=== PATIENT | male | born 1965 | race Caucasian/White ===

== ENCOUNTER 2021-07-04 14:46 | Outpatient (CLI) | payer MEDICAID, SELFPAY ==
[2021-07-04 15:18] LABS: Absolute Lymphocyte Count 2.18 X10^3/uL (0.83-4.51); Absolute Neutrophil Count 3.9 X10^3/uL (2.0-7.7); Basophil# 0.03 X10^3/uL; Basophil% 0.4 % (0-1); Eosinophil# 0.23 X10^3/uL; Eosinophils% 3.2 % (0-5); Hematocrit 45.4 % (40-54); Hemoglobin 15.2 g/dL (13.0-16.5); Lymphocyte # 2.18 X10^3/ul (0.83-4.51); Lymphocyte % 30.8 % (19-41); Mean Corp Hgb Conc 33.5 g/dL (32-36); Mean Corpuscular Hgb 31.2 pg (27.0-32.0); Mean Corpuscular Volume 93.2 fL (80-94); Mean Platelet Vol. 9.5 fl (6.2-12.0); Monocyte# 0.69 X10^3/uL; Monocyte% 9.7 % (0-10); NRBC Flagged by Analyzer 0 % (0-5); Neutrophil # 3.94 X10^3/uL (2.7-7.7); Neutrophil % 55.8 % (47-70); Platelet Count 313 K/mm3 (150-450); RBC Distribution Width CV 12.4 % (11.6-14.6); RBC Distribution Width SD 42.7 fl (35.1-43.9); Red Blood Count 4.87 M/mm3 (4.6-6.2); White Blood Count 7.1 K/mm3 (4.4-11.0)
[2021-07-04 16:05] LABS: Vitamin D,25 Hydroxy 21.6 ng/mL
[2021-07-04 16:14] LABS: AST(SGOT) 74 U/L (15-37); Alanine Aminotransfer ALT/SGPT 239 U/L (16-61); Albumin, Serum 3.8 g/dL (3.2-5.0); Alkaline Phosphatase 54 U/L (45-117); Anion Gap 3 (5-15); BUN 16 mg/dL (7-18); BUN/Creat Ratio 17.1 RATIO (10-20); Calcium,Total 9.3 mg/dL (8.5-10.1); Chloride 103 mmol/L (98-107); Cholesterol 146 mg/dL (200); Creatinine, Serum 0.93 mg/dL (0.70-1.30); EST Glomerular Filtration Rate 89 mL/min (>60); Est Glom Filt Rate - Afr Amer 108 mL/min (>60); Glucose 91 mg/dL (74-106); High Density Lipoprotein 33 mg/dL; Potassium 4.4 mmol/L (3.5-5.1); Protein, Total 7.8 g/dL (6.4-8.2); Sodium Level 137 mmol/L (136-145); Thyroid Stim Hormone (TSH) 1.07 uIU/mL (0.358-3.74); Triglycerides 217 mg/dL; Very Low Density Lipoprotein 43 mg/dL (5-40)
[2021-07-07 21:07] LABS: HCV Quant. RNA PCR 1270000 IU/mL (.)
[2021-07-07 22:14] LABS: HCV log 10 6.104 (.)
== END 2021-07-04 23:59 | disposition home or self-care (01) ==
PROVIDERS: PCP Internal Medicine; Referring Provider Internal Medicine; Visit Provider Internal Medicine
DX: K76.9 Liver disease, unspecified (principal); F10.10 Alcohol abuse, uncomplicated; B19.20 Unspecified viral hepatitis C without hepatic coma; Z87.898 Personal history of other specified conditions
CPT/HCPCS: 36415; 80053; 80061; 82306; 84443; 85025; 87522; 87902

== ENCOUNTER → 2021-08-21 | Outpatient (CLI) | payer MEDICAID, SELFPAY ==
[2021-08-21 14:32] LABS: AST(SGOT) 53 U/L (15-37); Alanine Aminotransfer ALT/SGPT 141 U/L (16-61); Albumin, Serum 3.4 g/dL (3.2-5.0); Alkaline Phosphatase 44 U/L (45-117); Bilirubin, Direct 0.13 mg/dL (0.00-0.30); Globulin 3.9 g/dL (2.2-4.2); Protein, Total 7.3 g/dL (6.4-8.2)
[2021-08-21 14:38] LABS: Hemoglobin A1c 5.5 % (3.8-5.6)
[2021-08-21 14:44] LABS: Prothrombin Time (Protime)PT. 12.6 SECONDS (11.7-14.9)
[2021-08-21 14:59] LABS: HIV - WCH Non-Reactive (Nonreactive)
[2021-08-23 05:07] LABS: HEPATITIS B SURFACE AG Negative (Negative); Hepatitis A IgM Antibody Negative (Negative); Hepatitis B Core AB IgM Negative (Negative)
[2021-08-23 10:45] LABS: AFP, Tumor Marker 4.3 ng/mL (0.0-8.4)
[2021-08-23 10:56] LABS: Hep C Antibodies >11.0 s/co ratio (0.0-0.9)
== END | disposition home or self-care (01) ==
PROVIDERS: PCP Internal Medicine; Visit Provider Nurse Practitioner Adult Health
DX: B19.20 Unspecified viral hepatitis C without hepatic coma (principal)
CPT/HCPCS: 36415; 80074; 80076; 82105; 83036; 85610; 86703

== ENCOUNTER → 2021-08-31 | Outpatient (CLI) | payer MEDICAID, SELFPAY ==
[2021-08-31] VITALS (9 sets, daily range): BP systolic 101–112; BP diastolic 61–84; PULSE 57–76; RESP 13–23; TEMP 36.9; O2SAT 92–96; BMI 30.4
--- NOTE | 2021-08-31 | LIVB_PTH ---
PATIENT: ELZA HARRY LOC: CT U#:[id number] AGE/SX: 55/M ROOM: RE08/31/[address]: EVE Mcfarland : 1965 BED: DIS: 08/31/2021 SPEC #: [id number] RECD: 08/31/21 10:02 STATUS: LENNY REBECA #: [id number] JEREL: 08/31/21 00:[address]: Stephenie Casiano NP DEPT: SURGICAL PATHOLOGY RECD BY: Valorie Serna ENTERED: 08/31/21 10:13 SP TYPE: LIVER BX CATALINA DR: Dr. Irlanda Gtz MD Tissues: Liver, NOS Procedures: PAS with Diastase (control) Trichrome (control) Special Stain Group II PAS Stain (control) Surgery Specimen Level V Retic (control) Iron Stain (control) HEADER OPERATION: CT Guided Liver Biopsy PRE-OP DIAGNOSIS: Hepatitis C, Elevated Liver Enzymes TISSUE SUBMITTED: Liver Core Biopsy 18-gauge core x3 MICROSCOPIC DIAGNOSIS Liver, CT-guided core biopsy: Chronic hepatitis, grade 2, stage 1 (modified Knodell scoring system for chronic hepatitis). See comment. AM:gabe 09/01/2021 COMMENT Sections show mild limiting fat necrosis and focal lobular necrosis. Trichrome stain reveals expansion of portal areas without bridging. Iron stain does not reveal accumulation of intraparenchymal iron. PAS and PASD stains do not reveal accumulation of abnormal proteins. Reticulin stain reveals a normal hepatic parenchymal architecture. All matched controls are appropriate. MICROSCOPIC DESCRIPTION Slides are reviewed. GROSS DESCRIPTION Received is one container labeled with the patient's name and not further designated. The specimen consists of four elongated fragments of delatorre soft tissue measuring 1.2 to 2 cm in length and 0.1 cm in diameter. The specimen is totally submitted in one cassette. / SJ:gabe 08/31/2021 TC:3 CPT: 20859, 15405 x5
[2021-08-31 08:01] LABS: Platelet Count 261 K/mm3 (150-450)
--- NOTE | 2021-08-31 08:01 | CT_ITS ---
PROCEDURE: CT DIRECTED CORE LIVER BIOPSY INDICATION: Male, 55 years old. Hepatitis C, needs bx pre-treatment PHYSICIAN: Dr. LAKISHA Ybarra CONSENT: Written informed consent was obtained having explained the risks, benefits and alternatives in detail with the patient who accepted the risks and agreed to proceed. Laboratory review and clinical assessment was performed. CONSCIOUS SEDATION PROTOCOL: The Drugs used were: 2 mg Versed, IV., and 50 mcg Fentanyl, IV. The sedation time was: 17 minutes. Conscious sedation was started at 9:34 AM and terminating at 9:51 AM. The conscious sedation protocol was independently monitored. RADIATION DOSAGE (If Supplied By Facility): CTDIvol = ( 19 ) mGy, DLP = ( 451.05 ) mGycm Individualized dose optimization techniques were used for this CT. TECHNIQUE: Using CT image guidance with image documentation, a suitable location in the left lobe of the liver was identified. Using an anterior approach, puncture of the liver was uneventful with an 18-gauge core needle system. 3, 18-gauge core samples were obtained, and submitted in formalin to the pathologist for further assessment. Followup CT scan revealed no distinct sequelae. CT/Biopsy/Inj or Needle Placement IMPRESSION: 1. CT directed core needle biopsy of the liver, using CT image guidance with image documentation as described. 2. Conscious Sedation protocol utilized with independent monitoring. Electronically Signed: Jem Birmingham MD at 10:19 EDT ,
--- NOTE | 2021-08-31 08:01 | CT_ITS ---
STUDY: CT ABDOMEN AND PELVIS WITH CONTRAST REASON FOR EXAM: Male, 55 years old. Hepatitis C RADIATION DOSAGE (If Supplied By Facility): CTDIvol = ( 12.83 ) mGy, DLP = ( 789.61 ) mGycm TECHNIQUE: Transaxial images were obtained from the dome of the diaphragm to the symphysis pubis without oral contrast. IV 100mL Isovue-300 was administered. Sagittal and coronal images were reconstructed. Individualized dose optimization techniques were used for this CT. COMPARISON: None. FINDINGS: The visualized lung bases are unremarkable. The visualized portions of the heart are within normal limits. There is decreased attenuation of the liver consistent with steatosis. Small lymph nodes are seen in the gastroepiploic ligament. There are multiple gallstones. Normal spleen. Normal pancreas. Normal bilateral adrenal glands. Normal right kidney. Normal left kidney. There is a small hiatal hernia. Normal small intestine. Normal colon. The appendix is visualized and appears normal. There is scattered atherosclerotic calcification of the abdominal aorta, without a demonstrated aneurysm. Normal inferior vena cava. Normal retroperitoneum. Normal urinary bladder. Normal abdominal wall. Marked degree of disc space narrowing and disc degeneration at the L5-S1 level. Central disc bulge Anterior spondylosis throughout the lumbar spine. CT/Abdomen/Pelvis WITH Contrast IMPRESSION: Fatty infiltration of the liver. Multiple small gallstones. Small lymph nodes are seen in the gastroepiploic ligament. Small hiatal hernia. Electronically Signed: Jem Birmingham MD at 10:13 EDT ,
[2021-08-31 08:14] LABS: Prothrombin Time (Protime)PT. 12.8 SECONDS (11.7-14.9)
[2021-08-31 08:16] LABS: Partial Thromboplast Time 28.9 Seconds (24.1-36.2)
[2021-08-31] MEDS: 0.9% Normal Saline 1,000 ML 15 ML IV (09:30)
[2021-08-31] MEDS: fentaNYL 100 MCG/2 ML Ampul IV (09:34)
[2021-08-31] MEDS: Midazolam 2 MG/2 ML Syringe IV (09:34)
[2021-08-31] MEDS: Lidocaine 2% (20 ml mdv) 20 ML Vial INFILT (09:48)
== END | disposition home or self-care (01) ==
PROVIDERS: PCP Internal Medicine; Referring Provider Nurse Practitioner Adult Health; Visit Provider Nurse Practitioner Adult Health
DX: B18.2 Chronic viral hepatitis C (principal); R74.8 Abnormal levels of other serum enzymes
CPT/HCPCS: 47000; 36415; 74177; 77012; 85049; 85610; 85730; 88307; 88313; 99156; J7030; Q9967; A4216

== ENCOUNTER → 2021-09-05 | Outpatient (CLI) | payer MEDICAID, SELFPAY ==
--- NOTE | 2021-09-05 07:58 | US_ITS ---
STUDY: ABDOMINAL ULTRASOUND - RIGHT UPPER QUADRANT REASON FOR VISIT: Male, 55 years old UNSPECIFIED VIRAL HEP C W/O HEPATIC COMA TECHNIQUE: Ultrasound evaluation of the right upper quadrant was performed with real-time and static santana-scale imaging. TECHNICAL QUALITY: Adequate. COMPARISON: None. FINDINGS: Liver: The liver measures 16.7 cm. There is increased echogenicity consistent with fatty infiltration. The bile ducts are within normal limits. There is hepatic color flow. The direction of portal flow is hepatopetal. There is no demonstrated mass lesion. Gallbladder: Normal distended gallbladder. The gallbladder wall measures 1.5 mm. There is a negative sonographic Eid''s sign. There is no pericholecystic fluid. There are multiple echogenic structures within the gallbladder, consistent with multiple gallstones. Common Bile Duct (C.B.D.): The common bile duct measures 2.9 mm. Pancreas: Normal size of the head, body and tail of the pancreas. There is normal echogenicity of the pancreas. There is no demonstrated pancreatic mass or cyst. Right Kidney: Normal size of the right kidney. The right kidney measures 12.2 cm x 6.2 cm x 4.2 cm. Normal renal cortex. The right cortex measures 1.3 cm. There is no demonstrated renal mass or cyst. There is no right hydronephrosis. US/Abdomen Limited IMPRESSION: Fatty infiltration of the liver. Multiple small gallstones. Electronically Signed: Jem Birmingham MD at 10:03 EDT ,
--- NOTE | 2021-09-05 07:59 | US_ITS ---
STUDY: ABDOMINAL ULTRASOUND - ELASTOGRAPHY REASON FOR VISIT: Male, 55 years old. Hepatitis C. TECHNIQUE: Liver stiffness measurements were obtained on a Copytele RS 85 ultrasound machine using a CA 1-7 probe following the SRU guidelines. 3 measurements were obtained using a 2-D-SWE method. The IQR/M was 16% suggesting a quality data set. TECHNICAL QUALITY: Adequate. COMPARISON: Comparison is made with prior study done earlier today. FINDINGS: Liver: Fatty infiltration of the liver. Median liver stiffness measured 7.1 kPa. US/Elastography Parenchyma/Organ IMPRESSION: Liver stiffness measures 7.1 kPa compatible with F2-F3 (Mild to moderate liver fibrosis) Metavir score. Electronically Signed: Jem Birmingham MD at 10:05 EDT ,
== END | disposition home or self-care (01) ==
PROVIDERS: PCP Internal Medicine; Referring Provider Nurse Practitioner Adult Health; Visit Provider Nurse Practitioner Adult Health
DX: R74.8 Abnormal levels of other serum enzymes (principal); B19.20 Unspecified viral hepatitis C without hepatic coma
CPT/HCPCS: J2405; 76705; 76981

== ENCOUNTER 2021-11-17 22:44 | Inpatient (IN) | payer MEDICAID, SELFPAY ==
[2021-11-17 22:45] VITALS: BP 102/72; PULSE 91; RESP 16; TEMP 36.6; O2SAT 95; BMI 24.3
[2021-11-17 23:59] VITALS: RESP 18; O2SAT 97
[2021-11-18] VITALS (7 sets, daily range): BP systolic 108–120; BP diastolic 63–79; PULSE 66–88; RESP 14–18; TEMP 36.4–37.2; O2SAT 93–98; BMI 29.0
[2021-11-18 00:05] LABS: Absolute Lymphocyte Count 3.02 X10^3/uL (0.83-4.51); Absolute Neutrophil Count 2.6 X10^3/uL (2.0-7.7); Basophil# 0.06 X10^3/uL; Basophil% 0.9 % (0-1); Eosinophil# 0.26 X10^3/uL; Eosinophils% 3.9 % (0-5); Hematocrit 45.3 % (40-54); Hemoglobin 15.4 g/dL (13.0-16.5); Lymphocyte # 3.02 X10^3/ul (0.83-4.51); Lymphocyte % 44.9 % (19-41); Mean Corpuscular Hgb 31.6 pg (27.0-32.0); Mean Corpuscular Volume 92.8 fL (80-94); Mean Platelet Vol. 9.2 fl (6.2-12.0); Monocyte# 0.76 X10^3/uL; Monocyte% 11.3 % (0-10); NRBC Flagged by Analyzer 0 % (0-5); Neutrophil % 38.7 % (47-70); Platelet Count 389 K/mm3 (150-450); RBC Distribution Width CV 13.7 % (11.6-14.6); RBC Distribution Width SD 46.9 fl (35.1-43.9); Red Blood Count 4.88 M/mm3 (4.6-6.2); White Blood Count 6.7 K/mm3 (4.4-11.0)
--- NOTE | 2021-11-18 00:05 | NURSING ---
assisted pt to restroom pt unable to void.
[2021-11-18 00:33] LABS: ALB/GLOB Ratio 0.9 RATIO (0.9-2.4); AST(SGOT) 80 U/L (15-37); Alanine Aminotransfer ALT/SGPT 100 U/L (16-61); Albumin, Serum 3.6 g/dL (3.2-5.0); Alkaline Phosphatase 43 U/L (45-117); Anion Gap 6 (5-15); BUN 6 mg/dL (7-18); BUN/Creat Ratio 7.5 RATIO (10-20); Calcium,Total 8.8 mg/dL (8.5-10.1); Chloride 111 mmol/L (98-107); EST Glomerular Filtration Rate 106 mL/min (>60); Est Glom Filt Rate - Afr Amer 129 mL/min (>60); Estimated Creatinine Clearance 99.75 ml/min; Globulin 3.9 g/dL (2.2-4.2); Glucose 98 mg/dL (74-106); Protein, Total 7.5 g/dL (6.4-8.2); Sodium Level 140 mmol/L (136-145)
--- NOTE | 2021-11-18 00:50 | PCM.HP.STD ---
HPI - General General Date of Service: 11/18/21 Chief Complaint: Desire for alcohol detoxification HPI Narrative ELZA HARRY, is a 56 M with a significant history of hepatitis C infection; and alcoholism who presents with help with alcoholism. Reportedly patient drinks about 10 beers per day. Last time he drank was about 2 hours before presentation. He denies any withdrawal symptoms at this time. [facility] Medical History Alcohol abuse Back problem Cataract Elevated liver enzymes Hearing problem Heartburn Hepatitis C History of drug use Liver disease Home Medications ibuprofen 600 mg tablet 600 mg PO TID PRN pain #60 tabs 07/12/21 [Rx Last Taken Unknown] emollient See Rx Instructions topical .prn dry skin #500 grams 08/21/21 [Rx Last Taken Unknown] melatonin 3 mg tablet 3 mg PO HS PRN sleep #30 tabs 08/21/21 [Rx Last Taken Unknown] bupropion HCl 150 mg tablet,12 hr sustained-release (Wellbutrin SR) 150 mg PO DAILY 08/31/21 [History Last Taken Unknown] sofosbuvir 400 mg-velpatasvir 100 mg tablet (Epclusa) 1 tab PO DAILY 12 weeks #84 tabs 10/27/21 [Rx Last Taken Unknown] Allergy/AdvReac Type Severity Reaction Status Date / Time No Known Allergies Allergy Verified 11/17/21 22:49 Family History Father Alcoholism Liver disease Mother Anxiety Lung cancer Other Depression Surgical History H/O eye surgery H/O removal of testicle Social History Smoking Status: Current every day smoker tobacco type: cigarettes alcohol intake: former substance use type: former substance user what type of physical activity do you participate in: running frequency: 3-4 times per week ROS ROS Narrative Pertinent positives and pertinent negatives as noted in HPI. All other systems were reviewed and are negative. Vital Signs Vital Signs Vital Signs: 11/17/21 22:45 11/17/21 23:59 Temperature 97.9 F Temperature Source Temporal Pulse Rate 91 Respiratory Rate 16 18 Blood Pressure 102/72 Blood Pressure Mean 82 Pulse Ox 95 97 Oxygen Delivery Method Room Air Room Air Weight Weight: 72.575 kg Body Mass Index (BMI) 24.3 Physical Exam Narrative Physical exam: General: Well-nourished, well-developed. Head: Normocephalic, atraumatic, no tenderness Eyes: Vision is grossly intact. EOMI ENT, no trauma, moist mucous membranes, no rhinorrhea Neck: Nontender, full range of motion, no spinal tenderness, deformities, step-off CVS: Regular rate and rhythm. S1-S2 present. No murmur, gallop or rub. Respiratory : clear to auscultation bilaterally, chest wall nontender, no wheezing Abdomen: Soft, nontender, nondistended, normal bowel sounds, no masses : Deferred Back: Nontender, no CVA tenderness, no midline spinal tenderness, deformities, step-offs Extremities: Nontender full range of motion, no trauma Skin: Normal color, no trauma, abrasions Neuro: Lethargic, oriented, cranial nerves II through XII grossly intact. Psychiatry: Normal mood. Normal affect. Not depressed. Not anxious. Results Medical Records Data Attestation: I reviewed the patient's medical records Lab / Micro Data Attestation: I reviewed the patient's lab results. Result Diagrams: 11/17/21 23:56 11/17/21 23:56 Labs: Laboratory Results - last 24 hr 11/17/21 23:56: WBC 6.7, RBC 4.88, Hgb 15.4, Hct 45.3, MCV 92.8, MCH 31.6, MCHC 34.0, RDW Std Deviation 46.9 H, RDW Coeff of John 13.7, Plt Count 389, MPV 9.2, Immature Gran % (Auto) 0.300, Neut % (Auto) 38.7 L, Lymph % (Auto) 44.9 H, [place] % (Auto) 11.3 H, Eos % (Auto) 3.9, Baso % (Auto) 0.9, Absolute Neuts (auto) 2.6, Absolute Lymphs (auto) 3.02, Nucleated RBC % 0 11/17/21 23:56: Sodium 140, Potassium 4.0, Chloride 111 H, Carbon Dioxide 23.0, Anion Gap 6, BUN 6 L, Creatinine 0.80, Estim Creat Clear Calc 99.75, Est GFR (MDRD) Af Amer 129, Est GFR (MDRD) Non-Af 106, BUN/Creatinine Ratio 7.5 L, Glucose 98, Calcium 8.8, Total Bilirubin 0.20, AST 80 H, ALT 100 H, Alkaline Phosphatase 43 L, Total Protein 7.5, Albumin 3.6, Globulin 3.9, Albumin/Globulin Ratio 0.9 11/17/21 23:56: Ethyl Alcohol 289.0 Micro: Microbiology 11/18/21 00:05 Nasal Secretion SARS-CoV-2 Antigen (Rapid) - Final Assessment & Plan Assessment/Plan (1) Alcohol dependence: (2) Desire for detoxification: PLAN: Plan Alcohol dependence and desire for detoxification Lab work reviewed showed ethanol level of 289 Patient be started on phenobarbital and other adjunctive medications: Gabapentin as needed; dicyclomine as needed; Vistaril as needed; Imodium as needed; trazodone as needed; Zofran as needed; scheduled thiamine; and schedule folic acid. Monitor CIWA score Tobacco abuse Counseled Nicotine patch prescribed. Elevated liver enzymes Likely secondary to alcoholism and hepatitis C. Clinical monitoring. DVT prophylaxis Low risk Encourage to ambulate Charges/Coding Visit Charges Inpatient E&M: 35638 Init Hosp L2
--- NOTE | 2021-11-18 00:52 | EX.ED.SAOD ---
HPI History of Present Illness Chief Complaint: Substance Abuse Narrative Narrative: Patient presents seeking detox from alcohol. He has been drinking for several decades, he states his usual daily average intake is several sixpacks of beer. He occasionally uses methamphetamine, but nothing regularly, and denies any other drug use. He does not drink hard liquor, just beer. He gets the shakes every morning if he has not drank. Currently, he is feeling intoxicated since he recently drank. He denies recent illness or injury. Last time he went through detox was a program 4 or 5 months ago. [facility] Medical History Alcohol abuse Back problem Cataract Elevated liver enzymes Hearing problem Heartburn Hepatitis C History of drug use Liver disease Home Medications ibuprofen 600 mg tablet 600 mg PO TID PRN pain #60 tabs 07/12/21 [Rx Last Taken Unknown] emollient See Rx Instructions topical .prn dry skin #500 grams 08/21/21 [Rx Last Taken Unknown] melatonin 3 mg tablet 3 mg PO HS PRN sleep #30 tabs 08/21/21 [Rx Last Taken Unknown] bupropion HCl 150 mg tablet,12 hr sustained-release (Wellbutrin SR) 150 mg PO DAILY 08/31/21 [History Last Taken Unknown] sofosbuvir 400 mg-velpatasvir 100 mg tablet (Epclusa) 1 tab PO DAILY 12 weeks #84 tabs 10/27/21 [Rx Last Taken Unknown] Allergy/AdvReac Type Severity Reaction Status Date / Time No Known Allergies Allergy Verified 11/17/21 22:49 Family History Father Alcoholism Liver disease Mother Anxiety Lung cancer Other Depression Surgical History H/O eye surgery H/O removal of testicle Social History Smoking Status: Current every day smoker tobacco type: cigarettes alcohol intake: former substance use type: former substance user what type of physical activity do you participate in: running frequency: 3-4 times per week ROS ROS ED Constitutional Constitutional ED: Denies chills or fever(s) Eyes Eyes: Denies change in vision or diplopia ENT ENT ED: Denies rhinorrhea or sore throat Cardiovascular Cardiovascular: Denies chest pain or palpitations Respiratory/Chest Respiratory/Chest: Denies cough or dyspnea Gastrointestinal Gastrointestinal: Denies abdominal pain, diarrhea, nausea or vomiting Genitourinary Genitourinary ED: Denies dysuria or hematuria Musculoskeletal Musculoskeletal: Denies back pain or neck pain Integumentary Denies abscess or rash Neurologic Neurologic: Denies headache(s), paresthesias or weakness Psychiatric Psychiatric: Denies anxiety or suicidal thoughts EXAM Physical Exam Const Vital Signs: 11/17/21 22:45 11/17/21 23:59 Temperature 97.9 F Temperature Source Temporal Pulse Rate 91 Respiratory Rate 16 18 Blood Pressure 102/72 Blood Pressure Mean 82 Pulse Ox 95 97 Oxygen Delivery Method Room Air Room Air Positive well nourished and well developed Constitutional Narrative: Intoxicated, pleasant and cooperative General Appearance ED: well developed and NAD HEENT Reports moist mucous membranes normocephalic and atraumatic Eyes PERRL and EOMs intact bilaterally Neck full ROM and supple Resp normal respiratory effort and clear to auscultation bilaterally Cardio regular rate, regular rhythm and no murmurs GI non-tender and non-distended Auscultation: normoactive bowel sounds Palpation: soft Back/Spine no CVA tenderness General Back: other FROM Extremity normal to inspection General Extremety ED: Negative for edema, pulses abnormal or tenderness General Extremity: Negative for edema or pulses abnormal Neuro oriented x3, CN's II-XII intact bilaterally and no sensory deficits noted Sensorium / Orientation: awake and alert Motor Exam: strength 5/5 throughout Skin no rashes or lesions noted and no wounds MDM MDM MDM Narrative Medical decision making narrative: Just slight elevations of his AST, ALT, alkaline phosphatase. His bilirubin is within normal limits. Alcohol level 289. Drug screen pending. Patient is clinically and hemodynamically stable, discussed with hospitalist for detox admission. Patient is calm and cooperative. Lab Data Attestation: I reviewed the patient's lab results. Labs: Laboratory Results - last 24 hr 11/17/21 11/17/21 11/17/21 23:56 23:56 23:56 WBC 6.7 RBC 4.88 Hgb 15.4 Hct 45.3 MCV 92.8 MCH 31.6 MCHC 34.0 RDW Std Deviation 46.9 H RDW Coeff of John 13.7 Plt Count 389 MPV 9.2 Immature Gran % (Auto) 0.300 Neut % (Auto) 38.7 L Lymph % (Auto) 44.9 H [place] % (Auto) 11.3 H Eos % (Auto) 3.9 Baso % (Auto) 0.9 Absolute Neuts (auto) 2.6 Absolute Lymphs (auto) 3.02 Nucleated RBC % 0 Sodium 140 Potassium 4.0 Chloride 111 H Carbon Dioxide 23.0 Anion Gap 6 BUN 6 L Creatinine 0.80 Estim Creat Clear Calc 99.75 Est GFR (MDRD) Af Amer 129 Est GFR (MDRD) Non-Af 106 BUN/Creatinine Ratio 7.5 L Glucose 98 Calcium 8.8 Total Bilirubin 0.20 AST 80 H ALT 100 H Alkaline Phosphatase 43 L Total Protein 7.5 Albumin 3.6 Globulin 3.9 Albumin/Globulin Ratio 0.9 Ethyl Alcohol 289.0 Discharge Plan Triage Chief Complaint: Substance Abuse ED Provider: Quinten Dhaliwal Dx/Rx/DC Orders Clinical Impression: Alcohol dependence, Methamphetamine use Prescriptions: No Action ibuprofen 600 mg tablet 600 mg PO TID PRN (Reason: pain) Qty: 60 0RF Rx Instructions: Do not take in conjunction with other NSAIDs. melatonin 3 mg tablet 3 mg PO HS PRN (Reason: sleep) Qty: 30 0RF emollient Cream See Rx Instructions topical .prn Qty: 500 0RF Rx Instructions: apply as needed for dry skin topical .prn; apply as needed for dry skin bupropion HCl [Wellbutrin SR] 150 mg Tablet Sustained-Release 12 Hr 150 mg PO DAILY sofosbuvir-velpatasvir [Epclusa] 400-100 mg tablet 1 tab PO DAILY 84 Days Qty: 84 0RF Primary Care Provider: Irlanda Gtz Referrals: Irlanda Gtz MD [Primary Care Provider] - Disposition Disposition: Acute Care Hospital [facility]
[2021-11-18 00:58] LABS: International Normalized Ratio 1.1; Prothrombin Time (Protime)PT. 13.4 SECONDS (11.7-14.9)
[2021-11-18 01:43] LABS: Amphetamine Urine VISTA NEGATIVE (<1000 ng/mL); Barbiturate Urine VISTA NEGATIVE (< 200 ng/mL); Benzodiazepine Urine VISTA NEGATIVE (< 200 ng/mL); Cocaine Urine VISTA NEGATIVE (< 300 ng/mL); Ecstacy Urine VISTA NEGATIVE (< 500 ng/mL); Methadone Urine VISTA NEGATIVE (< 300 ng/mL); PCP Urine VISTA NEGATIVE (< 25 ng/mL); THC Urine VISTA NEGATIVE (< 50 ng/mL); Vista UDS pH Range 6
[2021-11-18] MEDS: Phenobarbital 32.4 MG Tablet PO ×6 (01:56→22:33)
[2021-11-18] MEDS: Gabapentin 300 MG Capsule PO ×3 (01:56→17:51)
--- NOTE | 2021-11-18 10:06 | PN.HOSP_ITS ---
Subjective Subjective Follow-up on acute alcohol withdrawal: Patient was seen and examined. No new complaints. Denies fever or chills. Objective Data Objective Data Vital Signs: Vital Signs Temp Pulse Resp BP Pulse Ox O2 Del Method 97.9 F 88 18 115/65 93 Room Air 11/18/21 05:30 11/18/21 05:30 11/18/21 05:30 11/18/21 05:30 11/18/21 05:30 11/18/21 05:30 Oxygen Delivery Method Room Air Weight: 84.2 kg Body Mass Index (BMI) 29.0 Intake & Output: Intake and Output for Last 24 Hours 11/16/21 11/17/21 11/18/21 23:59 23:59 23:59 Intake Total 240 / 240 Balance 240 / 240 Lab / Micro Data Result Diagrams: 11/17/21 23:56 11/17/21 23:56 Labs: Laboratory Results - last 24 hr 11/17/21 23:56: WBC 6.7, RBC 4.88, Hgb 15.4, Hct 45.3, MCV 92.8, MCH 31.6, MCHC 34.0, RDW Std Deviation 46.9 H, RDW Coeff of John 13.7, Plt Count 389, MPV 9.2, Immature Gran % (Auto) 0.300, Neut % (Auto) 38.7 L, Lymph % (Auto) 44.9 H, [place] % (Auto) 11.3 H, Eos % (Auto) 3.9, Baso % (Auto) 0.9, Absolute Neuts (auto) 2.6, Absolute Lymphs (auto) 3.02, Nucleated RBC % 0 11/17/21 23:56: Sodium 140, Potassium 4.0, Chloride 111 H, Carbon Dioxide 23.0, Anion Gap 6, BUN 6 L, Creatinine 0.80, Estim Creat Clear Calc 99.75, Est GFR (MDRD) Af Amer 129, Est GFR (MDRD) Non-Af 106, BUN/Creatinine Ratio 7.5 L, Glucose 98, Calcium 8.8, Total Bilirubin 0.20, AST 80 H, ALT 100 H, Alkaline Phosphatase 43 L, Total Protein 7.5, Albumin 3.6, Globulin 3.9, Albumin/Globulin Ratio 0.9 11/17/21 23:56: Ethyl Alcohol 289.0 11/18/21 00:15: PT 13.4, INR 1.1 11/18/21 01:18: Urine Opiates Screen NEGATIVE, Urine Methadone Screen NEGATIVE, Ur Barbiturates Screen NEGATIVE, Ur Phencyclidine Scrn NEGATIVE, Ur Amphetamines Screen NEGATIVE, MDMA (Ecstasy) Screen NEGATIVE, U Benzodiazepines Scrn NEGATIVE, Urine Cocaine Screen NEGATIVE, U Cannabinoids Screen NEGATIVE, Ur Drug Screen Comment Micro: Microbiology 11/18/21 00:05 Nasal Secretion SARS-CoV-2 Antigen (Rapid) - Final Physical Exam Narrative Physical exam: General: Alert, Oriented x3, Cooperative, No apparent distress HEENT: Atraumatic Oral: Moist Mucosa Neck: Supple Lungs: Clear to auscultation Cardiovascular: HS I+II, regular, no murmurs Abdomen: Bowel Sounds Present, Soft, Non Tender Extremities: No edema Skin: No rashes, No breakdown Neurological: Grossly intact Psych/Mental Status: Appropriate Assessment & Plan Assessment/Plan (1) Alcohol dependence: (2) Desire for detoxification: PLAN: Plan 1. Acute alcohol withdrawal, CIWA 4, continue on phenobarbital withdrawal protocol 2. Nicotine dependence, continue on replacement 3. Elevated LFTs secondary to chronic alcohol abuse/liver cirrhosis 4. Chronic hepatitis C, genotype 1a, follows up in the outpatient with GI 5. DVT prophylaxis - low risk; early ambulation Charges/Coding Visit Charges Inpatient E&M: 58185 Subs Hosp L2
[2021-11-18] MEDS: Thiamine Hydrochloride 100 MG Tablet PO (10:29)
[2021-11-18] MEDS: Folic Acid 1 MG Tablet PO (10:29)
[2021-11-18] MEDS: Loperamide 2 MG Capsule PO ×2 (14:23→17:51)
[2021-11-18] MEDS: hydrOXYzine PAM 25 MG Capsule 50 MG PO ×2 (14:23→22:48)
[2021-11-18] MEDS: traZODone 100 MG Tablet PO (22:48)
[2021-11-19 02:20] VITALS: BP 112/75; PULSE 59; RESP 14; TEMP 36.4
[2021-11-19] MEDS: Phenobarbital 32.4 MG Tablet PO ×6 (02:23→21:59)
[2021-11-19 06:45] VITALS: BP 125/85; PULSE 77; RESP 14; TEMP 36.6
--- NOTE | 2021-11-19 09:26 | PCM.PN.HOSP ---
Subjective Subjective Follow-up on acute alcohol withdrawal: Patient was seen and examined. No acute events overnight. No new complaints. Objective Data Objective Data Vital Signs: Vital Signs Temp Pulse Resp BP Pulse Ox O2 Del Method 97.8 F 77 14 125/85 H 93 Room Air 11/19/21 06:45 11/19/21 06:45 11/19/21 06:45 11/19/21 06:45 11/18/21 22:30 11/19/21 06:45 Oxygen Delivery Method Room Air Weight: 84.2 kg Body Mass Index (BMI) 29.0 Intake & Output: Intake and Output for Last 24 Hours 11/17/21 11/18/21 11/19/21 23:59 23:59 23:59 Intake Total 240 / 240 Balance 240 / 240 Lab / Micro Data Result Diagrams: 11/17/21 23:56 11/17/21 23:56 Micro: Microbiology 11/18/21 00:05 Nasal Secretion SARS-CoV-2 Antigen (Rapid) - Final Physical Exam Narrative Physical exam: General: Alert, Oriented x3, Cooperative, No apparent distress HEENT: Atraumatic Oral: Moist Mucosa Neck: Supple Lungs: Clear to auscultation Cardiovascular: HS I+II, regular, no murmurs Abdomen: Bowel Sounds Present, Soft, Non Tender Extremities: No edema Skin: No rashes, No breakdown Neurological: Grossly intact Psych/Mental Status: Appropriate Assessment & Plan Assessment/Plan (1) Alcohol dependence: (2) Desire for detoxification: PLAN: Plan Summary: 56-year-old male with past medical history of chronic alcohol abuse, chronic hep C, not on treatment, who comes in requesting for medical stabilization for acute alcohol withdrawal. 1. Acute alcohol withdrawal, CIWA 3, continue on phenobarbital withdrawal protocol 2. Nicotine dependence, continue on replacement 3. Elevated LFTs secondary to chronic alcohol abuse/liver cirrhosis, LFTs are stable Patient follows with GI in the outpatient 4. Chronic hepatitis C, genotype 1a, follows up in the outpatient with GI 5. DVT prophylaxis - low risk; early ambulation Charges/Coding Visit Charges Inpatient E&M: 19801 Subs Hosp L2
[2021-11-19] MEDS: Gabapentin 300 MG Capsule PO ×2 (10:13→22:21)
[2021-11-19] MEDS: Pantoprazole Sodium 40 MG Tablet PO (10:13)
[2021-11-19] MEDS: Folic Acid 1 MG Tablet PO (10:13)
[2021-11-19] MEDS: Thiamine Hydrochloride 100 MG Tablet PO (10:13)
[2021-11-19 10:21] VITALS: BP 129/85; PULSE 76; RESP 17; TEMP 36.8; O2SAT 95
[2021-11-19 14:56] VITALS: BP 122/95; PULSE 97; RESP 17; O2SAT 95
[2021-11-19] MEDS: hydrOXYzine PAM 25 MG Capsule 50 MG PO ×2 (14:56→20:05)
[2021-11-19] MEDS: Ondansetron 8 MG Tablet PO (17:05)
--- NOTE | 2021-11-19 17:12 | ADDICTION ---
Pt was met with to complete RAMP assessment, AUDIT, DUDIT, ASAM, Mt Status, D/C Plan, ZACHARIAH's, and to discuss pt's needs. Pt reports that he is interested in residential at [facility]. Pt states his friends Aroldo and Alexander will help arrange transport to [facility], where Aroldo works. Pt was also open to completing a residential screening with Tg from [facility]. Pt is homeless and does not have a safe place to d/c and he states he is motivated to reenter treatment.
[2021-11-19] MEDS: Calcium Carbonate 500 MG Tablet 1000 MG PO (18:40)
[2021-11-19] MEDS: Dicyclomine 10 MG Capsule 20 MG PO (20:04)
[2021-11-19 22:00] VITALS: BP 108/79; PULSE 76; RESP 16; TEMP 37.4; O2SAT 95
[2021-11-19] MEDS: 0.9% Saline Lock 10 ML Syringe IV (22:10)
[2021-11-19] MEDS: traZODone 100 MG Tablet PO (22:21)
[2021-11-20] VITALS (7 sets, daily range): BP systolic 105–123; BP diastolic 68–82; PULSE 61–79; RESP 14–18; TEMP 36.3–36.9; O2SAT 93–97
[2021-11-20] MEDS: Phenobarbital 32.4 MG Tablet PO ×5 (02:34→21:59)
[2021-11-20 07:07] LABS: ALB/GLOB Ratio 0.8 RATIO (0.9-2.4); AST(SGOT) 45 U/L (15-37); Alanine Aminotransfer ALT/SGPT 64 U/L (16-61); Albumin, Serum 2.6 g/dL (3.2-5.0); Alkaline Phosphatase 39 U/L (45-117); Anion Gap 3 (5-15); BUN 11 mg/dL (7-18); BUN/Creat Ratio 14.3 RATIO (10-20); Calcium,Total 8.9 mg/dL (8.5-10.1); Chloride 107 mmol/L (98-107); Creatinine, Serum 0.77 mg/dL (0.70-1.30); EST Glomerular Filtration Rate 111 mL/min (>60); Est Glom Filt Rate - Afr Amer 135 mL/min (>60); Estimated Creatinine Clearance 100.15 ml/min; Globulin 3.2 g/dL (2.2-4.2); Glucose 122 mg/dL (74-106); Potassium 3.9 mmol/L (3.5-5.1); Protein, Total 5.8 g/dL (6.4-8.2); Sodium Level 137 mmol/L (136-145)
[2021-11-20] MEDS: Folic Acid 1 MG Tablet PO ×2 (08:19)
[2021-11-20] MEDS: Thiamine Hydrochloride 100 MG Tablet PO (08:19)
[2021-11-20] MEDS: Pantoprazole Sodium 40 MG Tablet PO (09:45)
--- NOTE | 2021-11-20 14:56 | NURSING ---
at discharge will be going to [facility] person; main number; Aroldo Riggins transporting pt; Alma Alonso
--- NOTE | 2021-11-20 18:24 | PN.HOSP_ITS ---
Subjective Subjective Patient was seen and examined today, he has no complaints of any nervousness or anxiety at this time. Patient is agreed to go to an inpatient detox program tomorrow morning. Objective Data Objective Data Vital Signs: Vital Signs Temp Pulse Resp BP Pulse Ox O2 Del Method 97.6 F L 78 18 116/79 97 Room Air 11/20/21 15:42 11/20/21 15:42 11/20/21 15:47 11/20/21 15:42 11/20/21 15:42 11/20/21 15:47 Oxygen Delivery Method Room Air Weight: 84.2 kg Body Mass Index (BMI) 29.0 Intake & Output: Intake and Output for Last 24 Hours 11/18/21 11/19/21 11/20/21 23:59 23:59 23:59 Intake Total 240 / 240 Balance 240 / 240 Lab / Micro Data Result Diagrams: 11/17/21 23:56 11/20/21 05:22 Labs: Laboratory Results - last 24 hr 11/20/21 05:22: Sodium 137, Potassium 3.9, Chloride 107, Carbon Dioxide 27.0, Anion Gap 3 L, BUN 11, Creatinine 0.77, Estim Creat Clear Calc 100.15, Est GFR (MDRD) Af Amer 135, Est GFR (MDRD) Non-Af 111, BUN/Creatinine Ratio 14.3, Glucose 122 H, Calcium 8.9, Total Bilirubin 0.30, AST 45 H, ALT 64 H, Alkaline Phosphatase 39 L, Total Protein 5.8 L, Albumin 2.6 L, Globulin 3.2, Albumin/Globulin Ratio 0.8 L Micro: Microbiology 11/18/21 00:05 Nasal Secretion SARS-CoV-2 Antigen (Rapid) - Final Physical Exam Const alert, oriented x3, no apparent distress and healthy appearing General Appearance: cooperative, well kempt and well developed Orientation / Consciousness: awake, oriented to person, oriented to place and oriented to time HEENT normocephalic, head/scalp atraumatic and moist oral mucous membranes Eyes PERRL, EOMs intact bilaterally and conjunctivae normal Neck supple, no JVD and thyroid normal General: trachea midline Resp normal respiratory effort, no retractions, no use of accessory muscles and clear to auscultation bilaterally Auscultation: Negative for rales, rhonchi or wheezes Cardio regular rate, regular rhythm, S1 normal heart sound, S2 normal heart sound, no murmurs, no rub and no gallops GI normal to inspection, nondistended, normoactive bowel sounds, soft to palpation, non-tender and non-distended Extremity no clubbing, cyanosis or edema Skin no rashes or lesions noted General Skin Exam: no breakdown Neuro oriented x3, CN's II-XII intact bilaterally, no focal motor deficits and no sensory deficits noted Sensorium / Orientation: awake and alert Speech: speech normal Psych affect normal Assessment & Plan Assessment/Plan (1) Alcohol dependence: PLAN: Plan 1. Acute alcohol withdrawal-patient is minimally symptomatic at this time, co ntinue phenobarbital #2 chronic alcoholism-patient has agreed to go into an inpatient detox facility tomorrow #3 elevated liver enzymes-secondary to alcohol abuse-these seem to be trending downward at this time, I do not feel the patient needs these monitored at this time Charges/Coding Visit Charges Inpatient E&M: 05348 Subs Hosp L2
[2021-11-20] MEDS: traZODone 100 MG Tablet PO (21:59)
[2021-11-20] MEDS: Gabapentin 300 MG Capsule PO (21:59)
[2021-11-21 02:17] VITALS: BP 119/80; PULSE 90; RESP 16; TEMP 36.9; O2SAT 95
[2021-11-21] MEDS: Dicyclomine 10 MG Capsule 20 MG PO (02:25)
[2021-11-21] MEDS: hydrOXYzine PAM 25 MG Capsule 50 MG PO (02:26)
[2021-11-21] MEDS: Phenobarbital 32.4 MG Tablet PO ×2 (04:22→08:48)
--- NOTE | 2021-11-21 07:37 | DCINST_ITS ---
Discharge Instructions Diet Discharge Diet: No restrictions Activity Discharge Activity: Return to Normal Activity Weight Bearing Status: Full weight bearing Follow Up Care Test Results: Test results from this visit will be discussed in further detail at your follow- up appointment, if applicable. Discharge Plan Admission Admit Date/Time: 11/18/21 00:46 Primary Reason for Your Visit: alcohol withdrawal Attending Provider: Jean Ghosh Primary Care Provider: Irlanda Gtz Consulting Providers: Bony Mora ; Nadine Garrett Discharge Orders/Prescriptions Referrals / Follow Up: Irlanda Gtz MD [Primary Care Provider] - Disposition Disposition (needs filled in before D/C Order can be placed): Inpatient Rehab Unit/Facility
--- NOTE | 2021-11-21 07:40 | DS.PCM_ITS ---
Providers Date of Admission: 11/18/21 Date of Discharge: 11/21/21 Primary Care Physician: Dr. Irlanda Gtz MD Reason For Visit: DESIRE FOR ALCOHOL DETOXIFICATION Diagnosis Discharge Diagnosis (1) Alcohol dependence: Status: Acute Code(s): F10.20 - Alcohol dependence, uncomplicated Plan 1. Acute alcohol withdrawal-patient is minimally symptomatic at this time, continue phenobarbital #2 chronic alcoholism-patient has agreed to go into an inpatient detox facility tomorrow #3 elevated liver enzymes-secondary to alcohol abuse-these seem to be trending downward at this time, I do not feel the patient needs these monitored at this time #4 alcohol intoxication Hospital Course Operations None Procedures None Summary of Care Provided Minutes Spent on Discharge: 31 Hospital Course: This 56-year-old white male was seen in the emergency room at [facility] requesting services for alcohol detox. Patient had gone through a previous detox program approximately 4 months earlier. Labs obtained in the emergency room showed elevations of AST, ALT and alkaline phosphatase. Alcohol level was 289, toxicology screen was negative. 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 Patient had no evidence of DTs during his hospitalization. On 11/21/2021, patient was seen and examined: On examination he appeared in good health and spirits. Vital signs as documented. Skin warm and dry and without overt rashes. Neck without JVD, neck was supple, trachea midline, thyroid was normal. Lungs clear bilaterally, normal air movem ent was noted. Heart exam notable for regular rhythm, normal sounds and absence of murmurs, rubs or gallops. Abdomen unremarkable and without evidence of organomegaly, masses, or abdominal aortic enlargement. Bowel sounds are present, abdomen is not distended. Extremities nonedematous, no cyanosis was noted, no clubbing was noted. Neuro: Cranial nerves II through XII are grossly intact, no focal motor deficits were noted, sensation to light touch and pinprick intact, motor exam 5/5 throughout. Psych: Patient is alert and oriented x3, he does not appear anxious or depressed, he does not appear agitated. Patient was discharged on 11/21/2021 to an inpatient detox program. Weight / BMI Weight Weight: 84.2 kg Body Mass Index (BMI) 29.0 ABG / Lab / Microbiology Data Result Diagrams: 11/17/21 23:56 11/20/21 05:22 Microbiology: Microbiology 11/18/21 00:05 Nasal Secretion SARS-CoV-2 Antigen (Rapid) - Final D/C Instructions Discharge Diet: No restrictions Weight Bearing Status: Full weight bearing Meaningful Use Info Meaningful Use Diagnoses (Choose all that apply): None applicable Discharge Plan Admission Admit Date/Time: 11/18/21 00:46 Primary Reason for Your Visit: alcohol withdrawal Attending Provider: Jean Ghosh Primary Care Provider: Irlanda Gtz Consulting Providers: Bony Mora ; Nadine Garrett Discharge Orders/Prescriptions Referrals / Follow Up: Irlanda Gtz MD [Primary Care Provider] - Disposition Disposition (needs filled in before D/C Order can be placed): Home, Self Care Charges/Coding Visit Charges Inpatient E&M: 91081 Disch Hosp
[2021-11-21] MEDS: Pantoprazole Sodium 40 MG Tablet PO (08:47)
[2021-11-21] MEDS: Folic Acid 1 MG Tablet PO (08:47)
[2021-11-21] MEDS: Thiamine Hydrochloride 100 MG Tablet PO (08:48)
[2021-11-21 09:09] VITALS: BP 100/69; PULSE 72; RESP 16; TEMP 36.3; O2SAT 99
[2021-11-21 11:11] VITALS: BP 113/79; PULSE 90; RESP 18; TEMP 36.7; O2SAT 95
--- NOTE | 2021-11-21 11:46 | NURSING ---
Patient discharged at this time.
== END 2021-11-21 11:46 | disposition home or self-care (01) | DRG 775 ==
LOC: ED 11-18 00:54 → MS3 11-18 01:08
PROVIDERS: Internal Medicine; Admitting Provider Hospitalist; Emergency Provider Emergency Medicine; PCP Internal Medicine; Visit Provider Internal Medicine
DX: F10.239 Alcohol dependence with withdrawal, unspecified (principal); B18.2 Chronic viral hepatitis C; K74.60 Unspecified cirrhosis of liver; F15.90 Other stimulant use, unspecified, uncomplicated; F17.210 Nicotine dependence, cigarettes, uncomplicated; Y90.8 Blood alcohol level of 240 mg/100 ml or more
CPT/HCPCS: 36415; 80048; 80053; 80307; 82077; 85025; 85610; 87811; 99284; A4216